=== PATIENT | male | born 1965 | race African-American/Black ===

== ENCOUNTER 2018-09-22 14:56 | Observation (INO) ==
--- NOTE | 2018-09-22 15:32 | ED ---
HPI General Chief Complaint: Chest Pain Stated Complaint: Chest Pain Time Seen by Provider: 09/22/18 15:18 Source: patient Mode of arrival: EMS Limitations: no limitations History of Present Illness HPI narrative: 67-year-old male with PMH of traumatic BKA of bilateral lower extremities presents the ED via EMS for evaluation of chest pain. Onset at rest approximately 45 minutes to arrival. Described as a pressure. Rated 6/ 10. No radiation. Patient endorses accompanying nausea and shortness of breath. He denies diaphoresis or palpitations. He denies previous episode of pain like this. He states he does not see a doctor on a regular basis. He denies familial history of NH. He endorses cigarette smoking since his teen years. He denies alcohol or illicit drug use. He was administered aspirin and a dose of sublingual nitroglycerin in route by EMS. Per EMS report blood pressure is 130 systolic and after sublingual nitroglycerin dropped to 100. BP 130/80 on arrival. Related Data Home Medications Medication Instructions Recorded Confirmed No Known Home Medications 09/22/18 09/22/18 Allergies Allergy/AdvReac Type Severity Reaction Status Date / Time No Known Allergies Allergy Verified 09/22/18 15:44 Review of Systems ROS: all other systems reviewed are negative PMFSH Surgical History Surgical History Hx of BKA (Acute) Social History Social History Substance History: No History of Abuse Smoking Status: Current every day smoker Tobacco Type: Cigarettes How Often Do You Have a Drink Containing Alcohol: 4 or more times a week Recent Travel in [facility] within the Last 8 Weeks: No Recent Out of Country Travel within the Last 8 Weeks: No Exam Narrative Exam Narrative: GENERAL: Well-nourished, well-developed, nontoxic-appearing -[place] male no acute distress. SKIN: Focused skin assessment warm/dry. HEAD: Atraumatic. Normocephalic. EYES: Pupils equal and round. No scleral icterus. No injection or drainage. ENT: No nasal bleeding or discharge. Mucous membranes pink and moist. NECK: Trachea midline. No JVD. CARDIOVASCULAR: Regular rate and rhythm. No murmur appreciated. RESPIRATORY: No accessory muscle use. Clear to auscultation. Breath sounds equal bilaterally. GASTROINTESTINAL: Abdomen soft, non-tender, nondistended. Hepatic and splenic margins not palpable. MUSCULOSKELETAL: No obvious deformities. No clubbing. No cyanosis. No edema. Bilateral BKA, well-healed without signs of infection. NEUROLOGICAL: Awake and alert. No obvious cranial nerve deficits. Motor grossly within normal limits. Normal speech. PSYCHIATRIC: Appropriate mood and affect; insight and judgment normal. Course Initial Documented Vital Signs Temperature 98.0 F 09/22/18 15:36 Pulse Rate 72 09/22/18 15:36 Respiratory Rate 16 09/22/18 15:36 Blood Pressure 130/80 09/22/18 15:36 Last Documented Vital Signs Temperature 98.0 F 09/22/18 15:36 Pulse Rate 72 09/22/18 15:43 Respiratory Rate 16 09/22/18 15:43 Blood Pressure 130/80 09/22/18 15:43 Pulse Oximetry 98 09/22/18 17:51 Medical Decision Making ODIN Attestation ODIN supervised visit: Yes Attestation: I, Dr. Michael, have reviewed the advance practice practitioner's documentation and am in agreement, met with the patient face to face, made the diagnosis, and the medical decision making was done by me. *My assessment and Findings: Patient is a 52-year-old male with history of previous bilateral traumatic BKA who presents with complaint of pressure-like chest pain that began while walking today but did not improved with rest. He received aspirin. He received nitro spray with EMS at which time his blood pressure went from the 130s-107. He does not believe the nitro helped his pain. He was given nitro paste here with relief. EKG does not show a STEMI. Initial troponin normal. He has been admitted to the chest pain center. [facility] Narrative Medical decision making narrative: 32-year-old male presents the ED for evaluation of pressure type chest pain which occurred 45 minutes prior to arrival. He endorses associated nausea and shortness of breath. He does not see a doctor and does not know about any chronic health problems. He received an aspirin and a dose of sublingual nitroglycerin in route. His blood pressure dropped from 130s-107 after that dose of nitro. States he did not get any improvement of his pain symptoms. Vitals reviewed. Physical exam is reassuring. Patient was administered a dose of Zofran and 1/2 inch nitroglycerin paste was applied to his chest. CXR reveals no acute CP disease. EKG with no acute findings. Troponin negative x1. CBC, CMP without acute abnormalities. Lipase within normal limits. On recheck the patient reports improvement of the chest tightness. I discussed the findings with the patient and recommended observation admission and the chest pain center. Patient's agreeable to this plan. Please see chest pain center notes for disposition. Medical Screen Exam Complete: Yes Emergency Medical Condition: Yes Differential Diagnosis Differential Diagnosis: Chest pain versus musculoskeletal pain versus ACS versus COPD versus GERD versus other Lab Data Result diagrams: 09/22/18 16:00 09/22/18 16:00 Lab Results 09/22/18 09/22/18 09/22/18 Range/Units 16:00 16:00 16:35 WBC 7.9 (4.0-11.0) th/mm3 RBC 4.61 (4.50-5.90) mil/mm3 Hgb 14.1 (13.0-17.0) gm/dL Hct 42.0 (39.0-51.0) % MCV 91.3 (80.0-100.0) fL MCH 30.6 (27.0-34.0) pg MCHC 33.6 (32.0-36.0) % RDW 14.3 (11.6-17.2) % Plt Count 270 (150-450) th/mm3 MPV 8.0 (7.0-11.0) fL Neut % (Auto) 54.3 (16.0-70.0) % Lymph % (Auto) 34.6 (9.0-44.0) % Mobile % (Auto) 9.0 H (0.0-8.0) % Eos % (Auto) 1.3 (0.0-4.0) % Baso % (Auto) 0.8 (0.0-2.0) % Neut # (Auto) 4.3 (1.8-7.7) th/mm3 Lymph # (Auto) 2.7 (1.0-4.8) th/mm3 Mobile # (Auto) 0.7 (0.0-0.9) th/mm3 Eos # (Auto) 0.1 (0.0-0.4) th/mm3 Baso # (Auto) 0.1 (0.0-0.2) th/mm3 WBC Differential . Differential Comment Auto diff final Sodium 142 (136-145) meq/L Potassium 3.8 (3.5-5.1) meq/L Chloride 107 (98-107) meq/L Carbon Dioxide 25.2 (21.0-32.0) meq/L Anion Gap 10 (5-15) meq/L BUN 10 (7-18) mg/dL Creatinine 0.98 (0.60-1.30) mg/dL Estimated GFR Greater than 89 (>89) mL/min Random Glucose 73 L (74-106) mg/dL Calcium 8.5 (8.5-10.1) mg/dL Total Bilirubin 0.4 (0.2-1.0) mg/dL AST 11 L (15-37) U/L ALT 17 (12-78) U/L Alkaline Phosphatase 106 (45-117) U/L Total Creatine Kinase (39-308) U/L Troponin I Less than 0.02 L (0.02-0.05) ng/mL Total Protein 7.4 (6.4-8.2) g/dL Albumin 3.4 (3.4-5.0) g/dL Lipase 134 (73-393) U/L Urine Opiates Screen Neg (Neg) Ur Barbiturates Screen Neg (Neg) Ur Amphetamines Screen Neg (Neg) U Benzodiazepines Scrn Neg (Neg) Urine Cocaine Screen Pos H (Neg) U Cannabinoids Screen Neg (Neg) 09/22/18 Range/Units 19:00 WBC (4.0-11.0) th/mm3 RBC (4.50-5.90) mil/mm3 Hgb (13.0-17.0) gm/dL Hct (39.0-51.0) % MCV (80.0-100.0) fL MCH (27.0-34.0) pg MCHC (32.0-36.0) % RDW (11.6-17.2) % Plt Count (150-450) th/mm3 MPV (7.0-11.0) fL Neut % (Auto) (16.0-70.0) % Lymph % (Auto) (9.0-44.0) % Mobile % (Auto) (0.0-8.0) % Eos % (Auto) (0.0-4.0) % Baso % (Auto) (0.0-2.0) % Neut # (Auto) (1.8-7.7) th/mm3 Lymph # (Auto) (1.0-4.8) th/mm3 Mobile # (Auto) (0.0-0.9) th/mm3 Eos # (Auto) (0.0-0.4) th/mm3 Baso # (Auto) (0.0-0.2) th/mm3 WBC Differential Differential Comment Sodium (136-145) meq/L Potassium (3.5-5.1) meq/L Chloride (98-107) meq/L Carbon Dioxide (21.0-32.0) meq/L Anion Gap (5-15) meq/L BUN (7-18) mg/dL Creatinine (0.60-1.30) mg/dL Estimated GFR (>89) mL/min Random Glucose (74-106) mg/dL Calcium (8.5-10.1) mg/dL Total Bilirubin (0.2-1.0) mg/dL AST (15-37) U/L ALT (12-78) U/L Alkaline Phosphatase (45-117) U/L Total Creatine Kinase 177 (39-308) U/L Troponin I Less than 0.02 L (0.02-0.05) ng/mL Total Protein (6.4-8.2) g/dL Albumin (3.4-5.0) g/dL Lipase (73-393) U/L Urine Opiates Screen (Neg) Ur Barbiturates Screen (Neg) Ur Amphetamines Screen (Neg) U Benzodiazepines Scrn (Neg) Urine Cocaine Screen (Neg) U Cannabinoids Screen (Neg) Imaging Data Radiologist's impression: Chest X-Ray 09/22/18 15:34 CONCLUSION: No acute cardiopulmonary disease Discharge Plan Discharge Disposition Patient Disposition: ED Admit(ED Internal Use Only) Discharge Condition Condition: Stable Discharge Order Discharge Orders: ED Use Only Admit Order (Routine); Ordered 09/22/18 Ordered By: La Nena Flores Discharge Details Diagnosis: Chest pain, rule out acute myocardial infarction Physicians Team ED Provider: Treva Michael ED Midlevel Provider: La Nena Flores Primary Care Provider: Doretha Obrien Attending Provider: Tevin Arambula Discharge Interventions Interventions: ED Discharge Assessment Last Done: 09/22/18 18:36 Vital Signs Last Done: 09/22/18 15:43 Status ED Status: Left Department Discharge Information Discharge Date/Time: 09/22/18 18:36
[2018-09-22] MEDS ORDERED: Sodium Chlor 0.9% Inj 500 ML IV.SIG ONE (15:34)
--- NOTE | 2018-09-22 15:57 | XR ---
EXAM DATE: 09/22/2018 3:51 PM EST AGE/SEX: 52 years / Male INDICATIONS: Left sided chest pain. CLINICAL DATA: This is the patient's initial encounter. Patient reports that signs and symptoms have been present for 1 day and indicates a pain score of 9/10. MEDICAL/SURGICAL HISTORY: Chronic obstructive pulmonary disease. None. COMPARISON: [facility] [place]ST SINGLE AP, 11/15/2014. . FINDINGS: A single AP view of the chest demonstrates the lungs to be symmetrically aerated without evidence of mass, infiltrate or effusion. The cardiomediastinal contours are unremarkable. Osseous structures a re intact. CONCLUSION: No acute cardiopulmonary disease Electronically signed by: Jordan Green MD Board Certified Radiologist 09/22/2018 3:56 PM EST
[2018-09-22 16:32] LABS: Baso # (Auto) 0.1 th/mm3 (0.0-0.2); Baso % (Auto) 0.8 % (0.0-2.0); Eos # (Auto) 0.1 th/mm3 (0.0-0.4); Eos % (Auto) 1.3 % (0.0-4.0); Hemoglobin 14.1 gm/dL (13.0-17.0); Lymph # (Auto) 2.7 th/mm3 (1.0-4.8); Lymph % (Auto) 34.6 % (9.0-44.0); Mean Corpuscular HGB Conc 33.6 % (32.0-36.0); Mean Corpuscular Hemoglobin 30.6 pg (27.0-34.0); Mean Corpuscular Volume 91.3 fL (80.0-100.0); Mono # (Auto) 0.7 th/mm3 (0.0-0.9); Neut # (Auto) 4.3 th/mm3 (1.8-7.7); Neut % (Auto) 54.3 % (16.0-70.0); Platelet Count 270 th/mm3 (150-450); Red Blood Count 4.61 mil/mm3 (4.50-5.90); Red Cell Distribution Width 14.3 % (11.6-17.2); White Blood Count 7.9 th/mm3 (4.0-11.0)
[2018-09-22 16:54] LABS: Alanine Aminotransferase 17 U/L (12-78); Albumin 3.4 g/dL (3.4-5.0); Anion Gap 10 meq/L (5-15); Aspartate Aminotransferase 11 U/L (15-37); Blood Urea Nitrogen 10 mg/dL (7-18); Calcium 8.5 mg/dL (8.5-10.1); Carbon Dioxide 25.2 meq/L (21.0-32.0); Chloride 107 meq/L (98-107); Glomerular Filtration Rate Greater Than 89 mL/min (>89); Glucose,Random 73 mg/dL (74-106); Lipase 134 U/L (73-393); Potassium 3.8 meq/L (3.5-5.1); Sodium 142 meq/L (136-145)
[2018-09-22 16:59] LABS: Alkaline Phosphatase 106 U/L (45-117); Total Protein 7.4 g/dL (6.4-8.2)
[2018-09-22 17:07] LABS: Amphetamine Screen,Urine Neg (Neg); Barbiturate Screen,Urine Neg (Neg); Cannabinoid Screen,Urine Neg (Neg); Cocaine Screen,Urine Pos (Neg)
[2018-09-22 17:30] LABS: Opiate Screen,Urine Neg (Neg)
[2018-09-22 19:48] LABS: Creatine Kinase 177 U/L (39-308)
--- NOTE | 2018-09-22 21:13 | ECG ---
Date Performed: 09/22/2018 Time Performed: 15:34:21 PTAGE: 52 years EKG: Sinus rhythm BORDERLINE LEFT AXIS DEVIATION BORDERLINE ECG INTERPRETATION BASED ON A DEFAULT AGE OF 90 YEARS NO PREVIOUS TRACING DOCTOR: Rico Chandra Interpretating Date/Time 09/22/2018 21:12:39
[2018-09-22 23:01] LABS: Creatine Kinase 188 U/L (39-308)
--- NOTE | 2018-09-23 06:52 | ECG ---
Date Performed: 09/22/2018 Time Performed: 20:36:20 PTAGE: 52 years EKG: Sinus rhythm NORMAL ECG PREVIOUS TRACING : 09/22/2018 15.34 No significant change from previous tracing noted. DOCTOR: Rico Chandra Interpretating Date/Time 09/23/2018 06:50:25
[2018-09-23 08:05] VITALS: TEMP 98.1; O2SAT 96
[2018-09-23] MEDS ORDERED: Regadenoson Inj 0.4 MG/5 ML Syringe IV.PUSH ONE (08:22)
--- NOTE | 2018-09-23 09:35 | P.PNCA ---
Subjective Interval history: Patient was seen and evaluated in concert with the physician cable layer. This is 67-year-old gentleman with bilateral BK amputations from an old trauma. He presents at the current time with atypical chest pain which was rated as a 6 out of 10 and lasted for about 45 minutes. He also had some nausea and some shortness of breath but no other associated symptoms. Although he denied drug use on presentation subsequent toxicology did reveal positive cocaine's. Being confronted with his he did admit to cocaine use prior to his chest pain. He is already ruled out with negative EKG is negative troponins x3 has a negative chest x-ray and unremarkable evaluation otherwise. He will be further evaluated consistent with chest pain center protocol with a nuclear scan since he is not able to treadmill. Medications and Allergies Active Medications: Active Medications Albuterol (Albuterol Neb (Prn)) 2.5 mg NEB UNSCH PRN PRN Reason: SHORTNESS OF BREATH/WHEEZING Albuterol (Duoneb Neb (Prn)) 1 ampul NEB UNSCH PRN PRN Reason: SHORTNESS OF BREATH/WHEEZING Pregabalin (Lyrica) 200 mg PO BID [place] Sodium Chloride (Ns Flush) 2 ml IV.FLUSH BID [facility] Last Admin: 09/23/18 04:24 Dose: 2 ml Sodium Chloride (Ns Flush) 2 ml IV.FLUSH PRN PRN PRN Reason: FLUSH AFTER USING IV ACCESS Allergies Allergy/AdvReac Type Severity Reaction Status Date / Time No Known Allergies Allergy Verified 09/22/18 15:44 Home Medications Medication Instructions Recorded Confirmed Type pregabalin [Lyrica] PO BID 09/23/18 History Physical Exam Vital signs: Vital Signs 09/22/18 15:36 09/22/18 15:43 09/22/18 17:51 Temperature 98.0 F Pulse Rate 72 72 Respiratory Rate 16 16 Blood Pressure 130/80 130/80 Pulse Oximetry 98 98 09/22/18 20:00 09/22/18 20:46 09/23/18 00:34 Temperature 98.8 F 98.5 F Pulse Rate 70 57 L Respiratory Rate 16 16 Blood Pressure 112/63 127/68 Pulse Oximetry 95 96 98 09/23/18 08:00 Temperature 98.1 F Pulse Rate 57 L Respiratory Rate 18 Blood Pressure 137/62 Pulse Oximetry 96 Intake & Output 02/09/23/18 09/23/18 18:59 06:59 18:59 Intake Total 500 / 500 Balance 500 / 500 Weight 68.039 kg Intake: IV 500 / 500 NS Inj 500 ML @ Wide Open IV. 500 / 500 SIG BOLUS ONE Rx#:[id number] Other: # Voids 3 Date of Last Bowel Movement 09/20/18 Weight On Admission 68.039 kg Narrative: History is as recorded by the physician assistant clinical nurse manager other than BKA largely unremarkable although he has quite tender over the anterior left chest wall. Results 09/22/18 16:00 09/22/18 16:00 Cardiac Enzymes 09/22/18 09/22/18 09/22/18 Range/Units 16:00 19:00 22:00 AST 11 L (15-37) U/L Troponin I Less than 0.02 L Less than 0.02 L Less than 0.02 L (0.02-0.05) ng/mL CBC 09/22/18 Range/Units 16:00 WBC 7.9 (4.0-11.0) th/mm3 RBC 4.61 (4.50-5.90) mil/mm3 Hgb 14.1 (13.0-17.0) gm/dL Hct 42.0 (39.0-51.0) % Plt Count 270 (150-450) th/mm3 Neut # (Auto) 4.3 (1.8-7.7) th/mm3 Lymph # (Auto) 2.7 (1.0-4.8) th/mm3 Alfalfa # (Auto) 0.7 (0.0-0.9) th/mm3 Eos # (Auto) 0.1 (0.0-0.4) th/mm3 Baso # (Auto) 0.1 (0.0-0.2) th/mm3 Comprehensive Metabolic Panel 09/22/18 Range/Units 16:00 Sodium 142 (136-145) meq/L Potassium 3.8 (3.5-5.1) meq/L Chloride 107 (98-107) meq/L Carbon Dioxide 25.2 (21.0-32.0) meq/L BUN 10 (7-18) mg/dL Creatinine 0.98 (0.60-1.30) mg/dL Calcium 8.5 (8.5-10.1) mg/dL AST 11 L (15-37) U/L ALT 17 (12-78) U/L Alkaline Phosphatase 106 (45-117) U/L Total Protein 7.4 (6.4-8.2) g/dL Albumin 3.4 (3.4-5.0) g/dL Intake and Output 09/22/18 09/23/18 09/23/18 22:59 06:59 14:59 Intake Total 500 / 500 Balance 500 / 500 Intake: IV 500 / 500 NS Inj 500 ML @ Wide Open IV. 500 / 500 SIG BOLUS ONE Rx#:[id number] Other: # Voids 3 Date of Last Bowel Movement 09/20/18 Weight 68.039 kg Weight On Admission 68.039 kg - Imaging and Cardiology Imaging: Impressions Chest X-Ray 09/22/18 15:34 CONCLUSION: No acute cardiopulmonary disease Assessment and Plan - Plan Patient is ruled out for ACS using standard chest pain center protocol and will be evaluated with nuclear stress test. If negative he will be discharged with a admonition to stop smoking and avoid cocaine in the future. If positive he will be evaluated further
--- NOTE | 2018-09-23 09:41 | P.HPCA ---
History of Present Illness Primary Care Physician: Doretha Obrien Chief Complaint: Chest pain History of Present Illness: This is a 52-year-old male with history of a traumatic bilateral below the knee amputation approximately 10 years ago that presents to ED with complaint of chest discomfort. Patient states around yesterday afternoon at 130 he developed a left-sided chest pressure [place] the park. It was an 8 out of 10 at its worst level. He was short of breath, nauseous, diaphoretic. States that discomfort is still there but it is not as bad. Currently about a 5 out of 10. He found that certain movements seem to worsen it as well as it was tender when the area was pressed on in the emergency department. He states he has had a stress test in the past but cannot recall specifically. Upon reviewing records he had a nonischemic Lexiscan in 2011 at this facility with an EF of 70%. Denies recent illnesses. Denies fevers or chills. Denies illicit drugs to me initially but tox screen was positive for cocaine and then he readily admits to using cocaine a couple days ago. 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 Substance abuse and tobacco abuse. Denies hypertension, hyperlipidemia, diabetes, or CAD. Surgical history: Bilateral below the knee amputation. Family history: Denies family history of CAD. Social history: Patient has been smoking 1 pack of cigarettes per week for the last few months but prior to that he was smoking about 1/3 pack of cigarettes a day for 7 years. States he did start smoking until his 40s. He has a couple beers occasionally. He initially denied illicit drug use but when informing him tox screen was positive for cocaine he then readily admitted to using cocaine a couple days ago. - Diagnosis (1) Chest pain (2) Tobacco abuse (3) Substance abuse Review of Systems General: Patient denies fevers, chills, and recent travel. HEENT: Patient denies headache, sore throat, difficulty swallowing. Cardiovascular: Has the chest discomfort as mentioned above. Denies sensation of heart beating rapidly or irregularly. No syncope. He was diaphoretic. Respiratory: He was short of breath. Denies inspirational chest discomfort. Denies coughing wheezing or hemoptysis. GI: He was nauseous. Patient denies vomiting, diarrhea, abdominal pain, bloody stools. Musculoskeletal: Patient denies joint pain or edema. Denies calf pain or edema. Neurovascular: Patient denies numbness, tingling, weakness in extremities. Denies headache. Endocrine: Denies polyuria and polydipsia. Hematologic: Denies easy bruising. Skin: Denies rash or itching. PMFSH - History History Provided By: Patient - Surgical History Surgical History: Surgical History (Last Reviewed 09/22/18 @ 16:46 by MELISSA Mary) Hx of BKA - Tobacco History Second Hand Smoke Exposure: Yes Tobacco Use In Past 30 Days: Yes Smoking Status: Current every day smoker Tobacco Type: Cigarettes - Alcohol History How Often Do You Have a Drink Containing Alcohol: 2 to 3 times a week - Substance Use History Substance History: No History of Abuse - Travel History Recent Travel in the [place] Within the Last 8 Weeks: No Recent Travel Out of the Country Within the Last 8 Weeks: No - Immunization History Tetanus Immunization: Unsure Medications and Allergies Active Medications: Active Medications Albuterol (Albuterol Neb (Prn)) 2.5 mg NEB UNSCH PRN PRN Reason: SHORTNESS OF BREATH/WHEEZING Albuterol (Duoneb Neb (Prn)) 1 ampul NEB UNSCH PRN PRN Reason: SHORTNESS OF BREATH/WHEEZING Pregabalin (Lyrica) 200 mg PO BID [facility] Sodium Chloride (Ns Flush) 2 ml IV.FLUSH BID [facility] Last Admin: 09/23/18 04:24 Dose: 2 ml Sodium Chloride (Ns Flush) 2 ml IV.FLUSH PRN PRN PRN Reason: FLUSH AFTER USING IV ACCESS Allergies Allergy/AdvReac Type Severity Reaction Status Date / Time No Known Allergies Allergy Verified 09/22/18 15:44 Home Medications Medication Instructions Recorded Confirmed Type pregabalin [Lyrica] PO BID 09/23/18 History Exam Vital signs: Vital Signs 09/22/18 15:36 09/22/18 15:43 09/22/18 17:51 Temperature 98.0 F Pulse Rate 72 72 Respiratory Rate 16 16 Blood Pressure 130/80 130/80 Pulse Oximetry 98 98 09/22/18 20:00 09/22/18 20:46 09/23/18 00:34 Temperature 98.8 F 98.5 F Pulse Rate 70 57 L Respiratory Rate 16 16 Blood Pressure 112/63 127/68 Pulse Oximetry 95 96 98 09/23/18 08:00 Temperature 98.1 F Pulse Rate 57 L Respiratory Rate 18 Blood Pressure 137/62 Pulse Oximetry 96 Intake & Output 09/22/18 09/23/18 09/23/18 18:59 06:59 18:59 Intake Total 500 / 500 Balance 500 / 500 Weight 68.039 kg Intake: IV 500 / 500 NS Inj 500 ML @ Wide Open IV. 500 / 500 SIG BOLUS ONE Rx#:[id number] Other: # Voids 3 Date of Last Bowel Movement 09/20/18 Weight On Admission 68.039 kg Narrative: GENERAL: This is a well-nourished, well-developed patient, in no apparent distress. Patient speaks in clear complete sentences. Patient is pleasant. HEENT: Head is atraumatic and normocephalic. Neck is supple without lymphadenopathy and trachea is midline. No JVD or carotid bruits. CARDIOVASCULAR: Regular rate and rhythm without murmurs, gallops, or rubs. RESPIRATORY: Clear to auscultation. Breath sounds equal bilaterally. No wheezes , rales, or rhonchi. Chest wall is tender and pressing on the left chest wall does worsen the discomfort that brought him to the ED. No use of accessory muscles. GASTROINTESTINAL: Abdomen is nontender, nondistended. Abdomen soft. No obvious pulsatile mass or bruit. No CVA tenderness. Strong femoral pulses bilaterally. Normal bowel sounds in all quadrants. MUSCULOSKELETAL: Bilateral below the knee amputation. Patient is moving upper and lower extremities freely. No calf tenderness or edema, no Homans sign. Strong pulses in upper and lower extremities. NEUROLOGICAL: Patient is alert and oriented. Cranial nerves 2-12 are grossly intact. No focal deficits and speech is clear. SKIN: No rash and turgor is normal. Results 09/22/18 16:00 09/22/18 16:00 Cardiac Enzymes 09/22/18 09/22/18 09/22/18 Range/Units 16:00 19:00 22:00 AST 11 L (15-37) U/L Troponin I Less than 0.02 L Less than 0.02 L Less than 0.02 L (0.02-0.05) ng/mL CBC 09/22/18 Range/Units 16:00 WBC 7.9 (4.0-11.0) th/mm3 RBC 4.61 (4.50-5.90) mil/mm3 Hgb 14.1 (13.0-17.0) gm/dL Hct 42.0 (39.0-51.0) % Plt Count 270 (150-450) th/mm3 Neut # (Auto) 4.3 (1.8-7.7) th/mm3 Lymph # (Auto) 2.7 (1.0-4.8) th/mm3 Ashley # (Auto) 0.7 (0.0-0.9) th/mm3 Eos # (Auto) 0.1 (0.0-0.4) th/mm3 Baso # (Auto) 0.1 (0.0-0.2) th/mm3 Comprehensive Metabolic Panel 09/22/18 Range/Units 16:00 Sodium 142 (136-145) meq/L Potassium 3.8 (3.5-5.1) meq/L Chloride 107 (98-107) meq/L Carbon Dioxide 25.2 (21.0-32.0) meq/L BUN 10 (7-18) mg/dL Creatinine 0.98 (0.60-1.30) mg/dL Calcium 8.5 (8.5-10.1) mg/dL AST 11 L (15-37) U/L ALT 17 (12-78) U/L Alkaline Phosphatase 106 (45-117) U/L Total Protein 7.4 (6.4-8.2) g/dL Albumin 3.4 (3.4-5.0) g/dL Intake and Output 09/22/18 09/23/18 09/23/18 22:59 06:59 14:59 Intake Total 500 / 500 Balance 500 / 500 Intake: IV 500 / 500 NS Inj 500 ML @ Wide Open IV. 500 / 500 SIG BOLUS ONE Rx#:[id number] Other: # Voids 3 Date of Last Bowel Movement 09/20/18 Weight 68.039 kg Weight On Admission 68.039 kg - Imaging and Cardiology Imaging: Impressions Chest X-Ray 09/22/18 15:34 CONCLUSION: No acute cardiopulmonary disease EKG interpretations - EKG EKG shows: sinus rhythm (EKGs are sinus rhythm without significant ST segment depressions or elevations.) Caprini VTE Risk Assessment Caprini VTE Risk Assessment: No/Low Risk (score <= 1) Caprini Risk Assessment Model: Point Value = 1 Point Value = 2 Point Value = 3 Point Value = 5 Age 41-60 Minor surgery BMI > 25 kg/m2 Swollen legs Varicose veins or History of unexplained or recurrent spontaneous Oral contraceptives or hormone replacement Sepsis (< 1 month) Serious lung disease, including pneumonia (< 1 month) Abnormal pulmonary function Acute myocardial infarction Congestive heart failure (< 1 month) History of inflammatory bowel disease Medical patient at bed rest Age 61-74 Arthroscopic surgery Major open surgery (> 45 min) Laparoscopic surgery (> 45 min) Malignancy Confined to bed (> 72 hours) Immobilizing plaster cast Central venous access Age >= 75 History of VTE Family history of VTE Factor V Leiden Prothrombin [id number] Lupus anticoagulant Anticardiolipin antibodies Elevated serum homocysteine Heparin-induced thrombocytopenia Other congenital or acquired thrombophilia Stroke (< 1 month) Elective arthroplasty Hip, pelvis, or leg fracture Acute spinal cord injury (< 1 month) Prophylaxis Regimen: Total Risk Factor Score Risk Level Prophylaxis Regimen 0-1 Low Early ambulation 2 Moderate Order ONE of the following: *Sequential Compression Device (SCD) *Heparin 5000 units SQ BID 3-4 Higher Order ONE of the following medications: *Heparin 5000 units SQ TID *Enoxaparin/Lovenox 40 mg SQ daily (WT < 150 kg, CrCl > 30 mL/min) *Enoxaparin/Lovenox 30 mg SQ daily (WT < 150 kg, CrCl > 10-29 mL/min) *Enoxaparin/Lovenox 30 mg SQ BID (WT < 150 kg, CrCl > 30 mL/min) AND/OR *Sequential Compression Device (SCD) 5 or more Highest Order ONE of the following medications: *Heparin 5000 units SQ TID (Preferred with Epidurals) *Enoxaparin/Lovenox 40 mg SQ daily (WT < 150 kg, CrCl > 30 mL/min) *Enoxaparin/Lovenox 30 mg SQ daily (WT < 150 kg, CrCl > 10-29 mL/min) *Enoxaparin/Lovenox 30 mg SQ BID (WT < 150 kg, CrCl > 30 mL/min) AND *Sequential Compression Device (SCD) Assessment and Plan - Assessment (1) Chest pain Code(s): R07.9 - Chest pain, unspecified Status: Acute (2) Tobacco abuse Code(s): Z72.0 - Tobacco use Status: Acute (3) Substance abuse Code(s): F19.10 - Other psychoactive substance abuse, uncomplicated Status: Acute - Plan Patient is ruled out for ACS using standard chest pain center protocol and will be evaluated with nuclear stress test. If negative he will be discharged with a admonition to stop smoking and avoid cocaine in the future. If positive he will be evaluated further H&P: Quality - VTE Deep Vein Thrombosis/Pulmonary Embolism Present on Admission: No
--- NOTE | 2018-09-23 10:29 | ECG ---
Date Performed: 09/23/2018 Time Performed: 00:29:23 PTAGE: 52 years EKG: SINUS BRADYCARDIA BORDERLINE ECG No significant change PREVIOUS TRACING : 09/22/2018 20.36 DOCTOR: Tevin Arambula Interpretating Date/Time 09/23/2018 10:27:26
--- NOTE | 2018-09-23 11:18 | NM ---
EXAM DATE: 09/23/2018 10:59 AM EST AGE/SEX: 52 years / Male INDICATIONS:Angina. . Chest pain and dyspnea. Cocaine abuse. CLINICAL DATA: This is the patient's initial encounter. Patient reports that signs and symptoms have been present for 2 days and indicates a pain score of 1/10. MEDICAL/SURGICAL HISTORY: . Smoker. . Bilateral below knee amputation. COMPARISON: [facility] [place], MYOCARDIAL PERF PHARM SPECT, 07/04/2012. . DOSE: 8.8 mCi Tc 99m Myoview at rest 26.8 mCi [id number] at stress 0.4 mg Lexiscan STRESS SYMPTOMS: None. EJECTION FRACTION: 64 % TECHNIQUE: The patient underwent pharmacologic stress with infusion of prescribed dose. Continuous ECG tracing was monitored during stress. Gated SPECT imaging was performed after stress and conventi onal SPECT imaging was performed at rest. The examination was performed on a SPECT/CT scanner, both attenuation and non-corrected datasets were reviewed. FINDINGS: Distribution: The maximum perfused segment at stress is in the anteroseptal wall. Perfusion Study: The pattern of perfusion at stress is within normal limits, probable diaphragmatic attenuation involving inferior wall . Gated Study: There are intact wall motion and wall thickening without hypokinetic or dyskinetic segm ents. The ejection fraction is calculated at 64%. RISK CATEGORY: Low (<1% Annual Mortality Rate) CONCLUSION: 1. No appreciable ischemia. Electronically signed by: Adali Lorenzo MD Board Certified Radiologist 09/23/2018 11:17 AM EST
[2018-09-23 11:56] VITALS: PULSE 61; RESP 17
[2018-09-23 11:57] VITALS: BP 119/58
--- NOTE | 2018-09-23 19:28 | TR ---
Date Performed: 09/23/2018 Time Performed: 10:02:24 DOCTOR: Tvein Arambula DRUG LIST: CLINICAL HISTORY: REASON FOR TEST: REASON FOR ENDING: OBSERVATION: CONCLUSION: Lexiscan stress test was performed under standard four minute protocol. Radionuclide was injected one minute prior to ending the test. No electrocardiographic abormalities were present to suggest ischemia. Nuclear imaging and interpretation are pending. COMMENTS:
== END 2018-09-23 13:18 | disposition home or self-care (01) ==
LOC: NEPE 14:56 → NEDA 14:56 → NEPHCDU 18:33
PROVIDERS: ADMIT Internal Medicine Interventional Cardiology; ATTEND Internal Medicine Interventional Cardiology
DX: F17.210 Nicotine dependence, cigarettes, uncomplicated; I20.9 Angina pectoris, unspecified; Z79.899 Other long term (current) drug therapy; Z89.511 Acquired absence of right leg below knee; R06.02 Shortness of breath; R61 Generalized hyperhidrosis; Z89.512 Acquired absence of left leg below knee; F19.10 Other psychoactive substance abuse, uncomplicated; R07.9 Chest pain, unspecified
CPT/HCPCS: 71010; 71045; 78452; 80053; 80307; 82550; 83690; 84484; 85025; 90761; 90774; 90784; 93005; 93017; 96361; 96374; 99285; A9502; C8952; G0378; J2405; J2785; J7040; Q9969